=== PATIENT | female | born 2000 | race Caucasian/White ===

== ENCOUNTER 2021-06-30 19:10 | Emergency (ER) | payer MEDICAID, SELFPAY ==
[2021-06-30 19:12] VITALS: BP 143/80; PULSE 82; RESP 16; TEMP 36.7; O2SAT 97; BMI 38.2
--- NOTE | 2021-06-30 19:45 | EX.ED.VIS.UR ---
HPI HPI - URI History of Present Illness Chief Complaint: Cough Informant: patient Onset/Context/Timing Onset: Days Context: Gradual Onset Timing: Intermittent Current Severity: Mild Maximum Severity: Mild Associated Symptoms Associated Symptoms: Positive for Productive Cough; Negative for Nasal Congestion, Headache, Sinus Pressure, Myalgias, Nausea, Vomiting, Diarrhea, Shortness of Breath, Chest Pain, Nonproductive cough and Hemoptysis Narrative Narrative: 20-year-old female no seen past medical or surgical history. States that last week she has had a cough of yellow phlegm. Denies any nausea, vomiting or diarrhea. No fever or chills. No hemoptysis. No shortness of breath. She has not been vaccinated but she is Covid tested twice a week at work they have always been negative. She had a similar cough around March of this year without any specific diagnosis. States that she has not had a chest x-ray for this. Prior similar symptoms: Yes Recent Illness/Hospitalization: No ROS ROS ED ROS Narrative Cough of yellow sputum. No hemoptysis. No fever. No shortness of breath. Review of Systems ROS Unobtainable: Denies due to encephalopathy Constitutional Constitutional ED: Denies chills or fever(s) Eyes Eyes: Denies change in vision ENT ENT ED: Denies ear pain or sore throat Cardiovascular Cardiovascular: Denies chest pain Respiratory/Chest Respiratory/Chest: Reports cough and sputum; Denies dyspnea Gastrointestinal Gastrointestinal: Denies abdominal pain, diarrhea, nausea or vomiting Genitourinary Genitourinary ED: Denies dysuria Musculoskeletal Musculoskeletal: Denies myalgias Integumentary Denies rash Psychiatric Psychiatric: Denies depression Endocrine Endocrinology: Denies polyuria Hematologic/Lymphatic Hematologic/Lymphatic: Denies easy bruising Allergic/Immunologic Allergic/Immunologic ED: Denies urticaria PFSH PFSH no medical history Allergy/AdvReac Type Severity Reaction Status Date / Time No Known Allergies Allergy Verified 06/30/21 19:12 no surgical history Social History Smoking Status: Current every day smoker tobacco type: cigarettes EXAM Physical Exam Narrative Exam Narrative: 20-year-old female vital signs stable. Pulse ox 97% on room air. Afebrile. Normal exam. Posterior pharynx normal. Lungs are clear to auscultation bilaterally. Otherwise unremarkable. Const Vital Signs: 06/30/21 19:12 06/30/21 19:22 Temperature 98.1 F Temperature Source Temporal Pulse Rate 82 Respiratory Rate 16 Respiratory Effort Normal Respiratory Depth Normal Respiratory Pattern Normal Blood Pressure 143/80 H Blood Pressure Mean 101 Pulse Ox 97 Oxygen Delivery Method Room Air Room Air Positive well nourished and well developed General Appearance ED: well developed and NAD; Negative for cyanotic, diaphoretic or pallor HEENT normocephalic and atraumatic External Ear: external ears normal Eyes PERRL and EOMs intact bilaterally Neck no lymphadenopathy, supple, no meningeal signs and no JVD General: Negative for anterior neck swelling or lymphadenopathy Resp normal respiratory effort and clear to auscultation bilaterally Auscultation: Negative for rales, rhonchi or wheezes Cardio S1 normal heart sound, S2 normal heart sound and no murmurs Rate: regular rate Rhythm: regular rhythm GI non-tender, non-distended and no masses Auscultation: normoactive bowel sounds Palpation: soft; Negative for tender or guarding Back/Spine no CVA tenderness; Negative for normal ROM General Back: Negative for CVA tenderness Extremity normal to inspection and full ROM General Extremety ED: Negative for cyanosis or tenderness General Extremity: Negative for cyanosis Neuro oriented x3 Sensorium / Orientation: alert, oriented to person, oriented to place and oriented to time Motor Exam: strength 5/5 throughout Psych mental status grossly normal Attitude: No agitated Mood & Affect: Negative for depressed or tearful Skin General Skin Exam: Negative for jaundice or pallor Lesions: no lesions Rashes: no rashes MDM MDM MDM Narrative Medical decision making narrative: Very well-appearing young female with a cough will be Covid tested a chest x-ray being obtained. Exam is benign. She will be discharged home. Repeat exam patient doing well at 8:45 PM will be discharged home. We went over test results. Lab Data Attestation: I reviewed the patient's lab results. Lab results narrative: Covid test negative. Radiography Diagnostic Testing: Radiology Impression Chest X-Ray 06/30/21 19:55 IMPRESSION: No radiographic evidence of acute cardiopulmonary disease. at 2028 Reported and signed by: Cuauhtemoc Vargas MD Electronically Signed: Cuahutemoc Vargas MD at 20:28 EDT Tel , Service support , Portable chest x-ray 1 view interpreted by myself shows no acute abnormality. Normal cardiac silhouette. No infiltrates. Patient Discharge Plan Triage Chief Complaint: Cough ED Provider: Brown Anne Dx/Rx/DC Orders Clinical Impression: Viral URI Instructions: ED URI, Viral, No Abx (Adult) Primary Care Provider: Care Physician,No Primary Activity Restrictions/Additional Instructions: Follow-up with your doctor as needed. Disposition Disposition: Home, Self Care
--- NOTE | 2021-06-30 19:55 | RAD_ITS ---
HISTORY: cough EXAMINATION/TECHNIQUE: XR Chest 1 View: Portable upright AP chest x-ray COMPARISON: None FINDINGS: LINES/DEVICES: None. LUNGS: No consolidation, edema or effusion. No pneumothorax. MEDIASTINUM AND CARDIOVASCULAR STRUCTURES: Cardiac silhouette not enlarged. Central airways and mediastinal contour are unremarkable. BONES AND SOFT TISSUES: No acute bony abnormalities. RAD/Chest 1 View (Portable) IMPRESSION: No radiographic evidence of acute cardiopulmonary disease. at 2028 Reported and signed by: Cuauhtemoc Vargas MD Electronically Signed: Cuauhtemoc Vargas MD at 20:28 EDT Tel , Service support ,
== END 2021-06-30 20:52 | disposition home or self-care (01) ==
LOC: ED 19:54
PROVIDERS: Emergency Provider Emergency Medicine
DX: J06.9 Acute upper respiratory infection, unspecified (principal); F17.210 Nicotine dependence, cigarettes, uncomplicated
CPT/HCPCS: 71045; 87426; 99282

== ENCOUNTER 2021-08-02 16:21 | Observation (INO) | payer MEDICAID, SELFPAY ==
[2021-08-02 16:21] VITALS: BP 129/99; PULSE 68; RESP 14; TEMP 35.5; O2SAT 99; BMI 38.2
--- NOTE | 2021-08-02 16:31 | EDS_ITS ---
HPI History of Present Illness Chief Complaint: Abd Pain Informant: patient Narrative Narrative: 21-year-old female presents the emergency department with intermittent abdominal pain and concerns for gonorrhea. She tells me that her boyfriend came and was tested for gonorrhea and treated but never followed up to see if he actually had the disease. She currently states that she is asymptomatic but is concerned that she may be a silent carrier. As far as the a bdominal pain she notes is mostly right upper quadrant and is intermittent sometimes sharp sometimes dull sometimes she will go 3 days with no symptoms. It is also been occurring on the left side of her abdomen. She notes that she has diarrhea every day except for about 1 day of the week. She does not see mucus or blood. No unexpected weight loss. No correlation with her pain with food. No fever. PFSH PFSH Medical History no medical history no medical history Allergy/AdvReac Type Severity Reaction Status Date / Time No Known Allergies Allergy Verified 08/02/21 16:23 Surgical History no surgical history no surgical history Social History (Updated 08/02/21 @ 16:[address] Inder Aceves, DO) Smoking Status: Current every day smoker tobacco type: cigarettes substance use type: marijuana ROS ROS ED Constitutional Constitutional ED: Denies chills or weight loss Eyes Eyes: Denies change in vision or diplopia ENT ENT ED: Denies ear pain, rhinorrhea or sore throat Cardiovascular Cardiovascular: Denies chest pain, orthopnea, palpitations or racing heartbeat Respiratory/Chest Respiratory/Chest: Denies cough, dyspnea or orthopnea Gastrointestinal Gastrointestinal: Reports abdominal pain and diarrhea; Denies nausea or vomiting Genitourinary Genitourinary ED: Denies dysuria, hematuria or urinary frequency Musculoskeletal Musculoskeletal: Denies arthralgias or myalgias Integumentary Denies abscess or rash Neurologic Neurologic: Denies headache(s) or weakness Psychiatric Psychiatric: Denies anxiety, depression, suicidal ideation or suicidal thoughts Endocrine Endocrinology: Denies polydipsia, polyphagia or polyuria Allergic/Immunologic Allergic/Immunologic ED: Denies mouth swelling, tongue swelling or urticaria EXAM Physical Exam Const Vital Signs: 08/02/21 16:21 08/02/21 18:53 Temperature 96 F L Temperature Source Temporal Pulse Rate 68 66 Respiratory Rate 14 16 Blood Pressure 129/99 H 117/73 Blood Pressure Mean 109 87 Pulse Ox 99 97 Oxygen Delivery Method Room Air Room Air Positive well nourished, well developed and obese General Appearance ED: well developed Nutritional Appearance: obese HEENT Reports normocephalic, head/scalp atraumatic and moist mucous membranes Eyes PERRL and EOMs intact bilaterally Neck no lymphadenopathy, supple and no JVD Resp normal respiratory effort and clear to auscultation bilaterally Cardio regular rate, regular rhythm and no murmurs GI normal to inspection, nondistended, normoactive bowel sounds and non-tender Palpation: soft Back/Spine no CVA tenderness and normal ROM Extremity normal to inspection General Extremety ED: Negative for edema General Extremity: Negative for edema Neuro oriented x3 and CN's II-XII intact bilaterally Sensorium / Orientation: alert Motor Exam: strength 5/5 throughout Psych mental status grossly normal Mood & Affect: Negative for depressed or tearful Skin no rashes or lesions noted and no wounds MDM MDM MDM Narrative Medical decision making narrative: Patient's white count was slightly elevated 11.1. Urinalysis showed 10-25 white cells no bacteria negative nitrates. CT scan of the abdomen pelvis with IV contrast is concerning for a 4.7 cm left tubo-ovarian abscess. Formal ultrasound is also consistent with this. Her gonorrhea and Chlamydia test was negative. I reexamined her pelvis and is not tender. She has not had fever. I discussed the case with no doc [employer] Dr. Cornell. Patient will receive a dose of Rocephin and Flagyl and the plan will be for admission. Lab Data Labs: Laboratory Results - last 24 hr 08/02/21 08/02/21 08/02/21 16:40 16:40 16:52 WBC 11.1 H RBC 4.44 Hgb 13.2 Hct 38.4 MCV 86.5 MCH 29.7 MCHC 34.4 RDW Std Deviation 38.4 RDW Coeff of Antonio 12.0 Plt Count 254 MPV 10.3 Immature Gran % (Auto) 0.300 Neut % (Auto) 59.3 Lymph % (Auto) 30.8 Piatt % (Auto) 5.5 Eos % (Auto) 3.2 Baso % (Auto) 0.9 Absolute Neuts (auto) 6.6 Absolute Lymphs (auto) 3.43 Nucleated RBC % 0 Sodium 139 Potassium 3.8 Chloride 109 H Carbon Dioxide 25.0 Anion Gap 5 BUN 13 Creatinine 1.00 Estim Creat Clear Calc 79.40 Est GFR (MDRD) Af Amer 89 Est GFR (MDRD) Non-Af 74 BUN/Creatinine Ratio 13.0 Glucose 87 Calcium 9.1 Total Bilirubin 0.20 AST 12 L ALT 23 Alkaline Phosphatase 53 Total Protein 7.8 Albumin 3.2 Globulin 4.6 H Albumin/Globulin Ratio 0.7 L Lipase 71 L Urine Color Yellow Urine Clarity Clear Urine pH 5.0 Ur Specific [place]illa 1.020 Urine Protein Negative Urine Glucose (UA) Normal Urine Ketones Negative Urine Occult Blood Negative Urine Nitrite Negative Urine Bilirubin Negative Urine Urobilinogen Normal Ur Leukocyte Esterase 100 H Urine RBC 0-5 SEEN Urine WBC 10-25 SEEN Ur Squamous Epith Cells 0-5 SEEN Amorphous Sediment 1+ URATE Urine Bacteria 0 SEEN Urine Mucus 0 SEEN Urine Test Negative Chlam trachomat DNA PCR N.gonorrhoeae DNA (PCR) 08/02/21 16:52 WBC RBC Hgb Hct MCV MCH MCHC RDW Std Deviation RDW Coeff of Antonio Plt Count MPV Immature Gran % (Auto) Neut % (Auto) Lymph % (Auto) Piatt % (Auto) Eos % (Auto) Baso % (Auto) Absolute Neuts (auto) Absolute Lymphs (auto) Nucleated RBC % Sodium Potassium Chloride Carbon Dioxide Anion Gap BUN Creatinine Estim Creat Clear Calc Est GFR (MDRD) Af Amer Est GFR (MDRD) Non-Af BUN/Creatinine Ratio Glucose Calcium Total Bilirubin AST ALT Alkaline Phosphatase Total Protein Albumin Globulin Albumin/Globulin Ratio Lipase Urine Color Urine Clarity Urine pH Ur Specific [place]illa Urine Protein Urine Glucose (UA) Urine Ketones Urine Occult Blood Urine Nitrite Urine Bilirubin Urine Urobilinogen Ur Leukocyte Esterase Urine RBC Urine WBC Ur Squamous Epith Cells Amorphous Sediment Urine Bacteria Urine Mucus Urine Test Chlam trachomat DNA PCR Negative N.gonorrhoeae DNA (PCR) Negative Radiography Diagnostic Testing: Clinical Impression(s) from Imaging Studies Abdomen/Pelvis CT 08/02/21 17:30 IMPRESSION: 4.7 cm left tubo-ovarian abscess. Electronically Signed: Hasmukh Abdi MD at 18:52 EDT Tel , Service support , Pelvis Ultrasound 08/02/21 19:04 IMPRESSION: 1. Complex left ovarian lesion consistent with tubo-ovarian abscess. Ectopic should also be considered in the appropriate clinical setting. 2. Mild free fluid. Electronically Signed: Marlen Butler MD at 20:59 EDT Tel , Service support , Discharge Plan Dx/Rx/DC Orders Clinical Impression: Abdominal pain, acute, Left tubo-ovarian abscess Disposition Disposition: Acute Care Hospital [facility] [place] [facility]
[2021-08-02 16:56] LABS: Absolute Lymphocyte Count 3.43 X10^3/uL (0.83-4.51); Absolute Neutrophil Count 6.6 X10^3/uL (2.0-7.7); Basophil% 0.9 % (0-1); Eosinophil# 0.36 X10^3/uL; Eosinophils% 3.2 % (0-5); Hematocrit 38.4 % (37-47); Hemoglobin 13.2 g/dL (12.0-15.0); Lymphocyte # 3.43 X10^3/ul (0.83-4.51); Lymphocyte % 30.8 % (19-41); Mean Corp Hgb Conc 34.4 g/dL (32-36); Mean Corpuscular Hgb 29.7 pg (27.0-32.0); Mean Corpuscular Volume 86.5 fL (81-99); Mean Platelet Vol. 10.3 fl (6.2-12.0); Monocyte# 0.61 X10^3/uL; Monocyte% 5.5 % (0-10); NRBC Flagged by Analyzer 0 % (0-5); Neutrophil % 59.3 % (47-70); Platelet Count 254 K/mm3 (150-450); RBC Distribution Width SD 38.4 fl (35.1-43.9); Red Blood Count 4.44 M/mm3 (4.2-5.4); White Blood Count 11.1 K/mm3 (4.4-11.0)
[2021-08-02 17:03] LABS: Bacteria 0 SEEN /hpf (None Seen); Mucous, Urine 0 SEEN /hpf (<or=2+)
[2021-08-02 17:21] LABS: Color, Urine Yellow (Yellow); Glucose, Dipstick Normal (Normal); Ketone-Dipstick Negative (Negative); Leukocyte Esterase-Dipstick 100 /ul (Negative); Nitrite-Dipstick Negative (Negative); Occult Blood-Urine Negative /ul (Negative); Protein-Dipstick Negative (Negative); Urine Bilirubin Dipstick Negative (Negative); Urine Clarity Clear (Clear); Urine Urobilinogen Normal (Normal)
[2021-08-02 17:25] LABS: ALB/GLOB Ratio 0.7 RATIO (0.9-2.4); AST(SGOT) 12 U/L (15-37); Alanine Aminotransfer ALT/SGPT 23 U/L (13-56); Albumin, Serum 3.2 g/dL (3.2-5.0); Alkaline Phosphatase 53 U/L (45-117); Anion Gap 5 (5-15); BUN 13 mg/dL (7-18); Calcium,Total 9.1 mg/dL (8.5-10.1); Chloride 109 mmol/L (98-107); EST Glomerular Filtration Rate 74 mL/min (>60); Est Glom Filt Rate - Afr Amer 89 mL/min (>60); Globulin 4.6 g/dL (2.2-4.2); Glucose 87 mg/dL (74-106); Lipase 71 U/L (73-393); Potassium 3.8 mmol/L (3.5-5.1); Protein, Total 7.8 g/dL (6.4-8.2); Sodium Level 139 mmol/L (136-145)
[2021-08-02 17:30] LABS: Amorphous Sediment 1+ URATE; Red Blood Cells-Urine 0-5 SEEN /hpf (0-5); Squamous Epithelial Cells - UA 0-5 SEEN /hpf (5-10); White Blood Cells 10-25 SEEN /hpf (0-5)
--- NOTE | 2021-08-02 17:30 | CT_ITS ---
INDICATION: abdominal pain EXAMINATION: CT Abdomen And Pelvis W/ Contrast Injection TECHNIQUE: Helically acquired images were obtained of the abdomen and pelvis after IV contrast. A radiation dose optimization technique was used for this scan. IV Contrast dosage and agent: IV 100ML ISOVUE 370 Oral contrast: None. COMPARISON: None. FINDINGS: Visualized lung bases: Unremarkable Liver: Unremarkable Gallbladder: Unremarkable Spleen: Unremarkable Pancreas: Unremarkable Adrenal Glands: Unremarkable Kidneys: Unremarkable Vasculature: Unremarkable GI Tract: Unremarkable Lymphadenopathy: None Peritoneum: No ascites. Bladder: Unremarkable Reproductive organs: There is a 4.7 x 3.5 cm multilocular cystic structure in the left adnexa with surrounding mesenteric fat stranding. Bones/Soft tissues: No suspicious osseous or soft tissue lesions CT/Abdomen/Pelvis W IV Cont ONLY IMPRESSION: 4.7 cm left tubo-ovarian abscess. Electronically Signed: Hasmukh Abdi MD at 18:52 EDT Tel , Service support ,
[2021-08-02 17:31] LABS: Internal QC Validated? YES +Cl - CLEAR BKGD; Pregnancy, Urine Negative Negative
[2021-08-02 18:47] LABS: Probe Check PASS
[2021-08-02 18:53] VITALS: BP 117/73; PULSE 66; RESP 16; O2SAT 97
--- NOTE | 2021-08-02 19:04 | US_ITS ---
EXAM: US PELVIS TRANSABDOMINAL, COMPLETE CLINICAL INDICATION: Left TOA , abnormal CT scan. TECHNIQUE: Transabdominal pelvic ultrasound was performed with grayscale and color Doppler imaging. This report was created using [employer] report [employer]AZU[employer] technology. COMPARISON: CT abdomen 08/02/2021. FINDINGS: UTERUS/CERVIX: Uterus is normal in size and echogenicity, measuring 8.6 x 3.8 x 4.1 cm. Endometrial thickness is normal measuring 3 mm. Anteverted. There is no uterine mass. RIGHT OVARY: Right ovary is normal in size and echogenicity, measuring 2.5 x 1.9 x 2 cm. No mass or dominant cyst. Blood flow is present in the right ovary. LEFT OVARY: Left ovary measures approximately 2.9 x 2.1 x 2.3 cm. No mass or dominant cyst. Adjacent complex cystic and solid lesion and is consistent with tubo-ovarian abscess. Blood flow is present in the left ovary. FREE FLUID: Mild free fluid in the cul-de-sac. BLADDER: Unremarkable as visualized. Wall is normal thickness for degree of distention. US/Pelvic (Non ) IMPRESSION: 1. Complex left ovarian lesion consistent with tubo-ovarian abscess. Ectopic should also be considered in the appropriate clinical setting. 2. Mild free fluid. Electronically Signed: Marlne Butler MD at 20:59 EDT Tel , Service support ,
[2021-08-02 21:38] VITALS: BP 118/81; PULSE 66; RESP 16; TEMP 36.2; O2SAT 99
[2021-08-02] MEDS: Ceftriaxone 1 GM/50 ML BAG IV (22:06)
[2021-08-02 22:34] VITALS: BP 134/77; PULSE 68; RESP 16; TEMP 36.7; O2SAT 99
[2021-08-02 22:38] VITALS: BMI 37.9
[2021-08-02] MEDS: Lactated Ringers 1,000 ML 50 ML IV (22:47)
--- NOTE | 2021-08-03 02:27 | PCM.HP.OB ---
HPI - General General Date of Admission: 08/02/21 HPI Narrative ARNOLDO TINEO, is a 21 F who presents [facility] Medical History Marijuana smoker Smoker Medical History no medical history Home Medications NK 08/02/21 [History Last Taken Unknown] Allergy/AdvReac Type Severity Reaction Status Date / Time No Known Allergies Allergy Verified 08/02/21 16:23 Surgical History no surgical history Social History (Updated 08/02/21 @ 16:[address] Inder Aceves, DO) Smoking Status: Current every day smoker tobacco type: cigarettes substance use type: marijuana Vital Signs Vital Signs Vital Signs: 08/02/21 16:21 08/02/21 18:53 08/02/21 21:38 Temperature 96 F L 97.1 F L Temperature Source Temporal Temporal Pulse Rate 68 66 66 Respiratory Rate 14 16 16 Respiratory Effort Respiratory Depth Respiratory Pattern Blood Pressure 129/99 H 117/73 118/81 H Blood Pressure Mean 109 87 93 Blood Pressure Source Blood Pressure Position Blood Pressure Location Pulse Ox 99 97 99 Oxygen Delivery Method Room Air Room Air Room Air 08/02/21 22:28 08/02/21 22:34 Temperature 98.0 F Temperature Source Oral Pulse Rate 68 Respiratory Rate 16 Respiratory Effort Normal Non-Labored Respiratory Depth Normal Respiratory Pattern Normal Blood Pressure 134/77 H Blood Pressure Mean 96 Blood Pressure Source Monitor Blood Pressure Position Sitting Blood Pressure Location Right Arm Pulse Ox 99 Oxygen Delivery Method Room Air Room Air Weight Weight: 106.6 kg Body Mass Index (BMI) 37.9 Labs Labs Labs: Hct 38.4 % (37-47) Hgb 13.2 g/dL (12.0-15.0) C.trachomatis DNA (PCR) Negative (Negative)
[2021-08-03 05:00] VITALS: BP 122/74; PULSE 90; RESP 16; TEMP 36.9; O2SAT 99
[2021-08-03 05:40] LABS: Absolute Neutrophil Count 5.9 X10^3/uL (2.0-7.7); Basophil# 0.07 X10^3/uL; Basophil% 0.7 % (0-1); Eosinophil# 0.34 X10^3/uL; Eosinophils% 3.4 % (0-5); Lymphocyte % 29.3 % (19-41); Mean Corp Hgb Conc 34.3 g/dL (32-36); Mean Corpuscular Volume 87.5 fL (81-99); Mean Platelet Vol. 10.3 fl (6.2-12.0); Monocyte# 0.65 X10^3/uL; Monocyte% 6.6 % (0-10); NRBC Flagged by Analyzer 0 % (0-5); Neutrophil # 5.92 X10^3/uL (2.7-7.7); Neutrophil % 59.7 % (47-70); Platelet Count 208 K/mm3 (150-450); RBC Distribution Width CV 12.1 % (11.6-14.6); RBC Distribution Width SD 38.9 fl (35.1-43.9); White Blood Count 9.9 K/mm3 (4.4-11.0)
--- NOTE | 2021-08-03 06:14 | PCS.PANDOC ---
PANDEMIC DOCUMENTATION INITIATED: Date: 05/31/2021 Time: 190
--- NOTE | 2021-08-03 08:24 | PCM.HP.BLA ---
History and Physical Date of Admission: 08/02/21 21-year-old G0 admitted with suspected tubo-ovarian abscess. Patient states she has had right sided upper and mid abdominal pain for several weeks. Pain started underneath her right rib cage and then began to move towards her mid abdomen. She occasionally has left-sided pain as well. Describes the pain as aching with intermittent sharp pain. Pain is not all day, every day. She states it will be present for several days and then may go away for a few days or up to a week. But overall has been persistent for 3 to 4 weeks. Denies fevers, chills, headache, constipation, emesis. Reports occasional nausea when pain is more severe. And some loose bowel movements as well. Denies vaginal discharge, dysuria. Of note her current sexual partner was recently suspected to have gonorrhea. He was seen in the emergency room and treated empirically, did not follow-up. She has not been treated either. Medical history: Denies [employer] history: No pregnancies, is on oral contraceptive pill. Does not currently have an [employer]. Allergies: NKDA Surgical history: Denies Family history: Denies pertinent history Medications: Denies Review of systems: All pertinent positives as seen above in history. All other review of systems negative. Vitals: BP 122/74 Pulse 90 Respiratory rate 16 Temperature 98.4 ?F O2 saturation 99% on room air Physical examination: General: Patient is seated comfortably in her bed, she is in no acute distress HEENT: Normocephalic atraumatic, pupils equally round reactive to light and accommodation, full range of motion of neck Cardio/respiratory: No increased effort, regular rhythm Abdomen: Abdomen soft, nontender, nondistended. No rebound or guarding. Extremities: No edema Neurologic: Cranial nerves II through XII grossly intact, muscle strength intact, range of motion intact Labs: WBC 9.9 hemoglobin 12 hematocrit 35 platelet count 208 Imaging: CT abdomen pelvis: 4.7 x 3.5 cm multilocular cystic structure in the left adnexa with mesenteric fat stranding Pelvic ultrasound: Complex left ovarian lesion consistent with tubo-ovarian abscess adjacent to the left ovary which measures normal Assessment/plan: 21-year-old G0 admitted with working diagnosis of tubo-ovarian abscess. 1. Patient is afebrile. Leukocytosis has resolved. We will continue to treat as tubo-ovarian abscess based on her clinical history of exposure to gonorrhea. However it is possible that this is an incidental cyst finding. As patient has not had fevers at home, no pelvic pain or vaginal discharge, and her pain is more upper right abdominal. Had a long discussion about this with the patient. Explained PID and tubo-ovarian abscesses. Discussed the plan with her as well. Discussed possible need for drainage and/or surgical removal if this cystic area were to enlarge or rupture. All questions were answered. 2. Continue antibiotics with doxycycline 100 mg every 12 hours and cefotetan 2 g every 12 hours. Patient will need to be discharged on 14 days of antibiotics: Doxycycline 100 mg twice daily and metronidazole 500 mg twice daily. 3. Repeat CBC in morning Diet: Regular IV fluid: Hep-Lock IV this morning DVT prophylaxis: SCDs and ambulation. Lovenox. Discharge plan: At this time we will plan to discharge after 24 hours of antibiotics as long as patient continues to improve clinically and continue to be afebrile.
[2021-08-03 08:25] VITALS: BP 125/75; PULSE 61; RESP 16; TEMP 36.7; O2SAT 99
[2021-08-03 11:43] LABS: Chlamydia Trachomatis by PCR POSITIVE (Negative); Neisserai gonorrhoeae by PCR Positive (Negative)
[2021-08-03] MEDS: Azithromycin 250 MG Tablet 1000 MG PO (12:47)
[2021-08-03 14:00] VITALS: BP 128/75; PULSE 55; RESP 16; TEMP 36.9; O2SAT 98
[2021-08-03] MEDS: 0.9% Saline Lock 10 ML Syringe IV (21:08)
[2021-08-03 21:20] VITALS: BP 123/57; PULSE 67; RESP 16; TEMP 37.1; O2SAT 97
--- NOTE | 2021-08-04 00:15 | NURSING ---
Patient was insistent on leaving [facility], called dr. graves and she gave discharge orders and instructions.
== END 2021-08-04 00:13 | disposition home or self-care (01) ==
LOC: ED 21:29 → MS3 22:15
PROVIDERS: Admitting Provider Student in an Organized Health Care Education/Training Program; Emergency Provider Emergency Medicine; Visit Provider Student in an Organized Health Care Education/Training Program
DX: A56.11 Chlamydial female pelvic inflammatory disease (principal); F17.210 Nicotine dependence, cigarettes, uncomplicated; Z79.3 Long term (current) use of hormonal contraceptives
CPT/HCPCS: 36415; 74177; 76856; 80053; 81001; 81025; 83690; 85025; 87491; 87591; 96365; 96366; 96367; 99218; 99284; 99406; J7050; J7120; Q9967; A4216; G0378